=== PATIENT | female | born 1985 | race Caucasian/White ===

== ENCOUNTER 2017-03-09 19:49 | Emergency (ER) | payer OTHER | END 2017-03-09 21:30 | disposition home or self-care (01) | LOC: D.ER 19:49 | DX: S83.92XA Sprain of unspecified site of left knee, initial encounter (principal); X58.XXXA Exposure to other specified factors, initial encounter; Y93.89 Activity, other specified; Y92.89 Other specified places as the place of occurrence of the external cause; F17.200 Nicotine dependence, unspecified, uncomplicated ==

== ENCOUNTER → 2020-06-16 10:31 | Outpatient (CLI) | payer OTHER ==
[2020-06-19 09:14] VITALS: BMI 33.7
== END | disposition home or self-care (01) ==
LOC: D.LABREF 10:31
PROVIDERS: ATTEND Obstetrics & Gynecology
DX: Z11.59 Encounter for screening for other viral diseases (principal)

== ENCOUNTER 2020-06-19 08:05 | Day surgery (SDC) | payer OTHER ==
[2020-06-16 11:21] LABS: BASOPHILS 0.3 % (0-2); EOSINOPHILS 2.8 % (0-7); HEMATOCRIT 43.4 % (36.0-48.0); HEMOGLOBIN 14.7 g/dL (12-16); IMMATURE GRANULOCYTES 0.3 % (0-5); LYMPHOCYTES 42.2 % (15-50); MCH 32.2 pg (26.0-34.0); MCHC 33.9 g/dL (31.0-37.0); MCV 95.2 fL (80.0-100.0); MEAN PLATELET VOLUME 9.6 fL (7.4-10.4); MONOCYTES 6.4 % (2-11); PLATELET COUNT 395 10x3/uL (130-400); RBC 4.56 10x6/uL (4.00-5.40); RDW 13.2 % (11.5-14.5); WBC 8.9 10x3/uL (4.8-10.8)
[2020-06-16 11:23] LABS: UDS - AMPHET NEGATIVE QUAL (NEGATIVE); UDS - BARB NEGATIVE QUAL (NEGATIVE); UDS - BENZO NEGATIVE QUAL (NEGATIVE); UDS - COCAINE NEGATIVE QUAL (NEGATIVE); UDS - OPIATE NEGATIVE QUAL (NEGATIVE); UDS - PCP NEGATIVE QUAL (NEGATIVE); UDS - THC NEGATIVE QUAL (NEGATIVE)
[~2020-06-19] VITALS: Ht 154.9 cm; Wt 80.7 kg
--- NOTE | ~2020-06-19 | OP ---
PATIENT NAME: HARSHA HARRIS MEDICAL RECORD: [id number] :89 LOCATION:[facility] ADMISSION DATE: SURGEON: NORBERT GALO MD DATE OF OPERATION: 06/19/2020 PREOPERATIVE DIAGNOSIS: Undesired fertility. POSTOPERATIVE DIAGNOSIS: Undesired fertility. PROCEDURES: 1. Diagnostic laparoscopy. 2. Bilateral salpingectomy. SURGEON: Norbert Galo MD SHIPPING TRACK SUPERVISOR: Petey/Umair ANESTHESIOLOGIST: Dr. Delvalle ANESTHETIC: General. FINDINGS: Unremarkable uterus, tubes, and ovaries bilaterally. SPECIMENS REMOVED: Bilateral tubes. SPECIMEN DISPOSITION: All specimens to pathology. ESTIMATED BLOOD LOSS: Minimal. FLUIDS: 300 cc lactated Ringer's. URINE OUTPUT: Quantity sufficient void prior to procedure. COMPLICATIONS: None. DRAINS: None. INDICATIONS: The patient is a 34-year-old female with undesired fertility. Risks, benefits as well as alternatives have been described. DESCRIPTION OF PROCEDURE: After informed consent was assured, the patient was taken to the operating room where anesthetic was obtained without difficulty. The patient was then prepped and draped in the usual sterile fashion. An incision was made at the umbilicus to accommodate a 5-mm trocar, which was inserted without difficulty and pneumoperitoneum was developed. Accessory trocars were now placed in the right lower quadrant midline. Through the midline port, a grasper was inserted. Right tube was elevated and using Thunderbeat coagulation cutter, the mesosalpinx was compressed, coagulated, and starting laterally and completing by crossing the tube at the coronal region on the right. This tube was removed from the port. The attention was directed to the left tube, which again was elevated from the fimbriated end. At this time, starting medially and working laterally, the tube was removed from its attachments to the mesosalpinx. The tube was now removed from the port. Marcaine was placed over directly over both dissection sites. Pneumoperitoneum was released as the accessory trocars were removed under direct visualization. OPERATIVE REPORT [id number] HARSHA HARRIS The primary trocar was now removed. All sites were closed with subcuticular stitch. Sponge, lap and needle counts were correct times 2. The patient was awakened and went to the recovery area in stable condition. TRANSINT:[id number] Voice Confirmation ID: [id number] DOCUMENT ID: [id number] NORBERT GALO MD CC: [id number] DICTATION DATE: 06/19/20 1354 FIRST AID OFFICER: 06/20/20 [id number] [facility] SDC 06/19/20 [place] [id number] [place] [id number]
[2020-06-19 09:14] VITALS: BP 138/66; Ht 154.9 cm; Wt 80.7 kg
[2020-06-19 09:41] LABS: HCG URINE NEGATIVE (NEGATIVE)
== END 2020-06-19 15:35 | disposition home or self-care (01) ==
LOC: D.OPS 08:05 → D.PAN 08:15 → D.OPS 08:15
PROVIDERS: ATTEND Obstetrics & Gynecology
DX: Z31.84 Encounter for fertility preservation procedure (principal); N85.00 Endometrial hyperplasia, unspecified; N89.8 Other specified noninflammatory disorders of vagina